=== PATIENT | female | born 1990 | race Caucasian/White ===

== ENCOUNTER 2017-01-22 23:47 | Observation (INO) | payer MEDICAID, OTHER ==
[~2017-01-22] VITALS: Ht 152.4 cm; Wt 95.3 kg
[~2017-01-22 23:47] MED LIST: PREN-169; PREN1TAB80
[2017-01-23 01:00] VITALS: BP 109/67
== END 2017-01-23 02:30 | disposition home or self-care (01) ==
LOC: 4S 23:47
PROVIDERS: ADMIT Obstetrics & Gynecology; ATTEND Obstetrics & Gynecology
DX: O62.9 Abnormality of forces of labor, unspecified (principal); O26.893 Other specified pregnancy related conditions, third trimester; R10.30 Lower abdominal pain, unspecified; Z3A.35 35 weeks gestation of pregnancy
CPT/HCPCS: 59025; G0378

== ENCOUNTER 2017-01-27 12:40 | Observation (INO) | payer OTHER ==
[~2017-01-27] VITALS: Ht 152.4 cm; Wt 94.3 kg
[2017-01-27 13:08] VITALS: BP 115/67
== END 2017-01-27 15:10 | disposition home or self-care (01) ==
LOC: 4S 12:40
PROVIDERS: ADMIT Obstetrics & Gynecology; ATTEND Obstetrics & Gynecology
DX: O43.123 Velamentous insertion of umbilical cord, third trimester (principal); Z3A.36 36 weeks gestation of pregnancy
CPT/HCPCS: 59025; 76805; G0378

== ENCOUNTER 2017-01-30 12:54 | Observation (INO) | payer OTHER ==
[~2017-01-30] VITALS: Ht 152.4 cm; Wt 94.8 kg
[~2017-01-30 12:54] MED LIST changes: -PREN-169; +PREN-169 PO
== END 2017-01-30 14:45 | disposition home or self-care (01) ==
LOC: 4S 12:54
PROVIDERS: ADMIT Obstetrics & Gynecology; ATTEND Obstetrics & Gynecology
DX: Z34.93 Encounter for supervision of normal pregnancy, unspecified, third trimester (principal); Z3A.36 36 weeks gestation of pregnancy
CPT/HCPCS: 59025; 76805; G0378

== ENCOUNTER 2017-02-03 13:35 | Observation (INO) | payer OTHER ==
[~2017-02-03] VITALS: Ht 152.4 cm; Wt 94.8 kg
== END 2017-02-03 14:45 | disposition home or self-care (01) ==
LOC: 4S 13:35
PROVIDERS: ADMIT Obstetrics & Gynecology; ATTEND Obstetrics & Gynecology
DX: Z34.93 Encounter for supervision of normal pregnancy, unspecified, third trimester (principal); Z3A.37 37 weeks gestation of pregnancy
CPT/HCPCS: 59025; 76805; G0378

== ENCOUNTER 2017-02-07 14:55 | Observation (INO) | payer OTHER ==
[~2017-02-07] VITALS: Ht 152.4 cm; Wt 95.3 kg
[~2017-02-07 14:55] MED LIST changes: -PREN1TAB80
== END 2017-02-07 15:35 | disposition home or self-care (01) ==
LOC: 4S 14:55
PROVIDERS: ADMIT Obstetrics & Gynecology; ATTEND Obstetrics & Gynecology
DX: Z34.93 Encounter for supervision of normal pregnancy, unspecified, third trimester (principal); Z3A.37 37 weeks gestation of pregnancy
CPT/HCPCS: 59025; 76805; G0378

== ENCOUNTER 2017-02-10 13:20 | Inpatient (IN) | payer OTHER ==
[~2017-02-10] VITALS: Ht 152.4 cm; Wt 95.7 kg
[2017-02-10 13:34] VITALS: BP 129/78
[2017-02-10] MEDS ORDERED: RINGERS SOLUTION,LACTATED 1,000 ML IV PRN (17:36)
[2017-02-10] MEDS ORDERED: OXYTOCIN 30 UNITS/LACT RINGERS 500 ML IV ONE (17:36)
[2017-02-10] MEDS ORDERED: LIDOCAINE HCL/PF 1% 30 ML VIAL INJ PRN (17:45)
[2017-02-10] MEDS ORDERED: FentaNYL CITRATE-PF 100 MCG/2 ML VIAL IVP PRN (17:45)
[2017-02-10] MEDS ORDERED: CITRIC ACID/SODIUM CITRATE 30 ML SOLUTION UDCUP PO PRN (17:45)
[2017-02-10] MEDS ORDERED: METHYLERGONOVINE MALEATE 0.2 MG/ML VIAL IM PRN (17:45)
[2017-02-10] MEDS ORDERED: METOCLOPRAMIDE HCL 5 MG/ML 2 ML VIAL IVP PRN (17:45)
[2017-02-10 18:20] LABS: BASOPHILS % (AUTO) 0.4 % (0.0-2.0); EOSINOPHILS % (AUTO) 0.6 % (1.0-6.0); HEMATOCRIT 33.5 % (36-46); HEMOGLOBIN 11.7 g/dL (12.0-16.0); LYMPHOCYTES # (AUTO) 0.7 K/uL (1.0-4.8); LYMPHOCYTES % (AUTO) 10.7 % (22.0-44.0); MEAN CORPUSCULAR HEMOGLOBIN 30.5 pg (26.0-34.0); MEAN CORPUSCULAR HGB CONC 34.8 G/dL (31.0-37.0); MEAN CORPUSCULAR VOLUME 88 fL (80-100); MONOCYTES # (AUTO) 0.5 K/uL (0.1-1.0); MONOCYTES % (AUTO) 7.3 % (2.0-9.0); NEUTROPHILS # (AUTO) 5.5 K/uL (1.8-7.7); RED BLOOD CELL COUNT(AUTO) 3.83 MIL/uL (4.00-5.20); WHITE BLOOD COUNT (AUTO) 6.9 K/uL (4.5-11.0)
[2017-02-10] MEDS: RINGERS SOLUTION,LACTATED 1,000 ML IV SCH (18:25)
[2017-02-10] MEDS ORDERED: OXYGEN THERAPY IH SCH (20:00)
[2017-02-10] MEDS ORDERED: OXYTOCIN 30 UNITS/LACT RINGERS 500 ML IV PRN (21:32)
[2017-02-11] MEDS: RINGERS SOLUTION,LACTATED 1,000 ML IV SCH ×2 (00:18→05:21)
[2017-02-11] MEDS ORDERED: LIDOCAINE HCL/PF 2% 5 ML VIAL ONE (00:25)
[2017-02-11] MEDS ORDERED: FentaNYL/BUPIV 0.125%/NS/PF 200 ML ED ONE (00:26)
[2017-02-11] MEDS ORDERED: FentaNYL/BUPIV 0.125%/NS/PF 200 ML ED PRN (00:42)
[2017-02-11] MEDS ORDERED: ONDANSETRON HCL 4 MG/2 ML VIAL IVP PRN (00:45)
[2017-02-11] MEDS ORDERED: DiphenhydrAMINE HCL 50 MG/ML VIAL IVP PRN (00:45)
[2017-02-11] MEDS ORDERED: PROMETHAZINE HCL 12.5 MG in SODIUM CHLORIDE 0.9% 50 ML IV PRN (00:45)
[2017-02-11] MEDS ORDERED: NALBUPHINE HCL 10 MG/ML VIAL IVP PRN (00:45)
[2017-02-11] MEDS ORDERED: GENTAMICIN 120 MG/NACL ISO-OSM 100 ML IV ONE (03:15)
[2017-02-11] MEDS: AMPICILLIN SODIUM 2 GM/NS 100 ML IV SCH ×2 (03:21→09:07)
[2017-02-11] MEDS ORDERED: ACETAMINOPHEN 1000 MG/ISO-OSM 100 ML IV ONE (06:45)
[2017-02-11] MEDS ORDERED: RINGERS SOLUTION,LACTATED 1,000 ML IV ONE (10:12)
[2017-02-11] MEDS ORDERED: OxyCODONE HCL/ACETAMINOPHEN 5-325 MG TABLET PO PRN ×2 (10:15)
[2017-02-11] MEDS ORDERED: LANOLIN 7 GM OINTMENT TP PRN (10:15)
[2017-02-11] MEDS ORDERED: GLYCERIN/WITCH HAZEL LEAF 40 PADS JAR TP PRN (10:15)
[2017-02-11] MEDS ORDERED: BENZOCAINE 20%/MENTHOL 56 GM SPRAY CANISTER TP PRN (10:15)
[2017-02-11] MEDS ORDERED: MEASLES/MUMPS/RUBELLA VACCINE, LIVE 0.5 ML/VIAL SQ ONE (10:15)
[2017-02-11] MEDS: MAGNESIUM HYDROXIDE SUSPENSION 30 ML UDCUP PO SCH (20:59)
[2017-02-11] MEDS: IBUPROFEN 600 MG TABLET PO PRN (22:10)
[2017-02-12] MEDS: MAGNESIUM HYDROXIDE SUSPENSION 30 ML UDCUP PO SCH (08:57)
[2017-02-12] MEDS ORDERED: IBUP-2070 PO (09:08)
[2017-02-12] MEDS ORDERED: DSS100 PO (09:09)
[2017-02-12] MEDS ORDERED: FERR-89 PO (09:10)
[2017-02-12] MEDS: IBUPROFEN 600 MG TABLET PO PRN (11:25)
[2017-02-13] MEDS: IBUPROFEN 600 MG TABLET PO PRN (00:44)
[2017-02-13] MEDS: MAGNESIUM HYDROXIDE SUSPENSION 30 ML UDCUP PO SCH (08:11)
== END 2017-02-13 10:00 | disposition home or self-care (01) | DRG 560 ==
LOC: OBSVTOIN 13:20 → 4S 13:20
PROVIDERS: ADMIT Obstetrics & Gynecology; ATTEND Obstetrics & Gynecology
PROC: 10D07Z6 Extraction of Products of Conception, Vacuum, Via Natural or Artificial Opening (ICD-10-PCS; principal; 2017-02-11)
PROC: 0KQM0ZZ Repair Perineum Muscle, Open Approach (ICD-10-PCS; 2017-02-11)
PROC: 3E0S3CZ (ICD-10-PCS; 2017-02-11)
PROC: 00HU33Z Insertion of Infusion Device into Spinal Canal, Percutaneous Approach (ICD-10-PCS; 2017-02-11)
DX: O41.1230 Chorioamnionitis, third trimester, not applicable or unspecified (principal); O69.81X0 Labor and delivery complicated by cord around neck, without compression, not applicable or unspecified; Z37.0 Single live birth; O70.1 Second degree perineal laceration during delivery; Z3A.38 38 weeks gestation of pregnancy
CPT/HCPCS: 59025; 76805; 86850; 86900; 86901; 88307; J0131; J0290; J1580; J2590; J3490; J7120

== ENCOUNTER 2020-05-02 20:46 | Emergency (ER) | payer MEDICAID, OTHER ==
[~2020-05-02] VITALS: Ht 157.5 cm; Wt 90.9 kg
[~2020-05-02 20:46] MED LIST changes: +DSS100 PO; +FERR-89 PO; +IBUP-2070 PO; -PREN-169 PO; +PRENATAL ONE T1 EACH PO
[2020-05-02] MEDS ORDERED: FAMOTIDINE 10 MG/ML 2 ML VIAL IVP ONE (22:45)
[2020-05-02] MEDS ORDERED: MAG HYDROX/AL HYDROX/SIMETH 30 ML SUSP UDCUP PO ONE (22:45)
[2020-05-02] MEDS ORDERED: ACETAMINOPHEN 500 MG TABLET PO ONE (22:45)
[2020-05-02 22:54] LABS: COVID AG,FIA SOURCE NASOPHARYNGEAL
[2020-05-02 23:00] LABS: BASOPHILS % (AUTO) 0.5 % (0.0-2.0); HEMATOCRIT 42.2 % (36-46); LYMPHOCYTES # (AUTO) 1.9 K/uL (1.0-4.8); LYMPHOCYTES % (AUTO) 35.9 % (22.0-44.0); MEAN CORPUSCULAR HGB CONC 33.1 G/dL (31.0-37.0); MEAN CORPUSCULAR VOLUME 88 fL (80-100); MONOCYTES # (AUTO) 0.6 K/uL (0.1-1.0); NEUTROPHILS # (AUTO) 2.5 K/uL (1.8-7.7); NEUTROPHILS % (AUTO) 48.6 % (40.0-70.0); PLATELET COUNT (AUTO) 263 K/uL (150-450); RED BLOOD CELL COUNT(AUTO) 4.82 MIL/uL (4.00-5.20); RED CELL DISTRIBUTION WIDTH 14.7 % (11.5-14.5)
[2020-05-02 23:06] LABS: ANION GAP 4 mmol/L (8-16); CARBON DIOXIDE 28 mmol/L (22-29); CHLORIDE 103 mmol/L (98-107); CREATININE 0.69 mg/dL (0.60-1.30); GLOMERULAR FILTR. RATE CALC > 60 mL/min (>60); GLUCOSE,RANDOM 106 mg/dL (70-110); POTASSIUM 3.3 mmol/L (3.5-5.1); SODIUM SERUM 135 mmol/L (136-145); UREA NITROGEN, BLOOD 19 mg/dL (7-18)
[2020-05-02] MEDS ORDERED: POTASSIUM CHLORIDE 20 MEQ ER TABLET PO ONE (23:30)
[2020-05-02 23:32] LABS: ALANINE AMINOTRANSFERASE 77 U/L (12-78); ALBUMIN 3.9 g/dL (3.4-5.0); ALKALINE PHOSPHATASE 88 U/L (46-116); ASPARTATE AMINOTRANSFERASE 41 U/L (15-37); BILIRUBIN,TOTAL 0.3 mg/dL (0.1-1.0); CREATINE KINASE, TOTAL ONLY 139 U/L (26-192); HCG,QUANTITATIVE < 1 mIU/mL (0-6); TOTAL PROTEIN, SERUM 8.3 g/dL (6.4-8.2)
[2020-05-02 23:42] LABS: B-TYPE NATRIURETIC PEPTIDE < 5 pg/mL (0-100)
[2020-05-03 00:30] VITALS: BP 123/75
== END 2020-05-03 00:44 | disposition home or self-care (01) ==
LOC: EMS 20:46
DX: U07.1 COVID-19 (principal); R07.9 Chest pain, unspecified; E87.6 Hypokalemia; R05 Cough
CPT/HCPCS: 36415; 71045; 80053; 82550; 83880; 84484; 84702; 85025; 87426; 93005; 96374; 99285; J3490; U0003